=== PATIENT | female | born 1980 | race Caucasian/White ===

== ENCOUNTER 2020-01-03 14:55 | Emergency (ER) | payer OTHER, SELFPAY ==
[2020-01-03 15:06] VITALS: BP 140/97; PULSE 104; RESP 20; TEMP 36.9; O2SAT 100
--- NOTE | 2020-01-03 15:34 | ED.GENADULT ---
HPI - General Adult General Chief complaint: Fall Stated complaint: pain all over from a fall Time Seen by Provider: 01/03/20 15:34 Source: patient and RN notes reviewed Mode of arrival: ambulatory Limitations: no limitations History of Present Illness HPI narrative: 39-year-old female presents with complaints of posterior neck and upper and lower back pain for 1 day. Ibuprofen and Flexeril with some relief. Altagracia says she fell down 4 steps and landed on her buttocks on concrete. Denies radiating pain, numbness, or tingling. Denies fever or chills. No upper or lower extremity pain or weakness. Exacerbating factors consist of prolong standing and bending. Denies nausea, vomiting, or abdominal pain. Denies problems with urinating or having a bowel movement, LBM 01/02/20 per patient and normal. No flank pain or hematuria or dysuria. Denies being , LMP currently (started today). The patient reports she have not been diagnosed with COVID-19. The patient reports she is not waiting for the results of a COVID-19 lab test. The patient reports she do not have fever, chills, weakness, fatigue, myalgia, or facial swelling. The patient reports she do not have a new or worsening cough or shortness of breath. Denies chest pain. The patient reports she do not have any rhinorrhea, congestion, sore throat, nausea, vomiting, abdominal pain, and diarrhea. Tolerating po intake well. Denies recent traveling. Denies concerns for COVID-19 or exposures been home since [id number] order except for essential household needs, working, and return home. At this time, patient is not suspected of having COVID-19. Some parts of this dictation were generated by voice recognition software and may contain typographical and/or grammatical inaccuracies. Related Data Home Medications Medication Instructions Recorded Confirmed omeprazole 20 mg PO DAILY 01/03/20 01/03/20 Allergies Allergy/AdvReac Type Severity Reaction Status Date / Time No Known Allergies Allergy Unknown Verified 01/03/20 15:23 Review of Systems Review of Systems: Narrative: CONSTITUTIONAL: Denies fever, chills, sweats. EYES: Denies visual changes, redness, discharge. ENT: Denies rhinorrhea, congestion, sore throat, otalgia. CARDIOVASCULAR: Denies chest pain, palpitations, edema. RESPIRATORY: Denies dyspnea, wheezing, cough. GASTROINTESTINAL: Denies abdominal pain, nausea, vomiting, diarrhea. GENITOURINARY: Denies dysuria, hematuria, abnormal discharge. SKIN: Denies rash or itching. MUSCULOSKELETAL: Complains of upper and lower back pain, posterior neck pain. Denies myalgia. NEUROLOGIC: Denies numbness or focal weakness. PSYCHIATRIC: Denies anxiety or depression. All systems reviewed & are unremarkable except as noted in HPI and below. [facility] Past Medical History Medical History (Updated 01/04/20 @ 00:00 by Lisa Vicente) Bulging disc Compression fracture L1-L2 SI (sacroiliac) joint dysfunction Surgical History Surgical History (Updated 01/03/20 @ 15:46 by MARTY Yin) History of lumpectomy LT axilla Family History Family History (Updated 01/03/20 @ 15:46 by MARTY Yin) Father Heart disease Mother Alive and well Social History Social History (Updated 01/03/20 @ 15:47 by MARTY Yin) Smoking status: Never smoker Alcohol intake: current Substance use: current Substance use type: marijuana Living arrangements: with family Occupation/Education: occupation Gender identity (if verbalized by the patient): Female Comments At time of signature, agree with nurse past medical, surgical, social, and family history. There is relevant patient's medical history pertinent to the presenting complaint and no relevant family history pertinent to the presenting complaint. Exam Narrative: Exam Narrative: GENERAL: This is a well-nourished, well-developed patient, in no apparent distress. Talks in full
[2020-01-03] MEDS: KETOROLAC (*BKC) 60 MG/2 ML VIAL IM (15:47)
== END 2020-01-03 16:10 | disposition home or self-care (01) ==
PROVIDERS: Emergency Provider Nurse Practitioner Family
DX: S16.1XXA Strain of muscle, fascia and tendon at neck level, initial encounter (principal); S39.012A Strain of muscle, fascia and tendon of lower back, initial encounter; W10.9XXA Fall (on) (from) unspecified stairs and steps, initial encounter
CPT/HCPCS: 96372; 99203; G0463; J1885